=== PATIENT | female | born 1980 | race Hispanic/Latino ===

== ENCOUNTER 2017-10-17 06:39 | Day surgery (SDC) | payer BC ==
[~2017-10-17] VITALS: Ht 160 cm; Wt 68.5 kg
[~2017-10-17 06:39] MED LIST: IRON18 MG PO; NORCO 5-325 TA1 EACH PO; PERCOCET 7.5-31 EACH PO; PRENATAL VITAM1 EACH PO; VITAMIN D50000 UNIT PO
[2017-10-17] MEDS ORDERED: IRON18 MG PO (07:07)
[2017-10-17] MEDS ORDERED: FIBER500 MG PO (07:08)
--- NOTE | 2017-10-29 08:33 | OR ---
[facility] [address] [place], [place] [address] Signed DATE OF OPERATION: 10/17/2017 SURGEON: Aicha Gomez MD PREOPERATIVE DIAGNOSIS: Blighted ovum. POSTOPERATIVE DIAGNOSIS: Blighted ovum. PROCEDURE: Suction D and C. ANESTHESIA: MAC, paracervical block. ESTIMATED BLOOD LOSS: Minimal. DRAINS: None. INDICATIONS AND FINDINGS: The patient is a 36-year-old female, 6, para 4, SAB 1, who was approximately 7-1/2 weeks by her LMP, but has had 2 ultrasounds, which showed empty intrauterine sac. She has had a little bit of spotting. She has been extensively counseled and at this point, she decided that she wished to proceed with D and C. At the time of surgery, exam under anesthesia revealed the uterus, which was approximately 10-week size. The os was closed. There was a large amount of tissue within the uterus. DESCRIPTION OF PROCEDURE: The patient was prepped and draped in the dorsal lithotomy position. An open-sided speculum was placed. The anterior lip of the cervix was visualized and grasped with a single-tooth tenaculum. The endocervical canal was then dilated to a #9 dilator. The # 9 curved suction curette was then introduced and suction done with removal of a large amount of tissue. This was then followed by sharp curettage with removal of more tissue. The suction and sharp curettage were alternated until the cavity felt smooth and regular and contracted. Following this, the tenaculum was removed and there was bleeding from the tenaculum sites, which did not respond to pressure on the patient's left side. This required a [id number]-rq-[id number] suture of 0 chromic. The patient had received a paracervical block at the onset of the procedure with injection of 5 mL of 1% lidocaine plain at 2, 4, 8, and 10 o'clock. Procedure was then terminated. After removal of the speculum and the patient was taken to the recovery room in good condition. Electronically Signed By: AICHA GOMEZ MD 10/29/17 0833 PATIENT NAME: DANITZA LAROSE OPERATIVE REPORT DATE OF : 76 PHYSICIAN: AICHA GOMEZ MD REPORT #: [id number] REPORT IS CONFIDENTIAL AND NOT TO BE RELEASED WITHOUT AUTHORIZATION [address] [address] Signed Aicha Gomez MD PJW/MODL /[id number] Electronically Signed By: AICHA GOMEZ MD 10/29/17 0833 PATIENT NAME: DANITZA LAROSE OPERATIVE REPORT DATE OF : 76 PHYSICIAN: AICHA GOMEZ MD REPORT #: [id number] REPORT IS CONFIDENTIAL AND NOT TO BE RELEASED WITHOUT AUTHORIZATION
== END 2017-10-17 10:45 | disposition home or self-care (01) ==
LOC: DS 06:39
PROVIDERS: Obstetrics & Gynecology
PROC: 10D07Z8 Extraction of Products of Conception, Other, Via Natural or Artificial Opening (ICD-10-PCS; principal; 2017-10-17 08:00)
DX: O02.0 Blighted ovum and nonhydatidiform mole (principal); I10 Essential (primary) hypertension; Z79.899 Other long term (current) drug therapy; Z3A.01 Less than 8 weeks gestation of pregnancy
CPT/HCPCS: 00952; J1100; J1885; J2250; J2405; J2704; J2765; J3010; J7120

== ENCOUNTER 2018-12-04 05:38 | Inpatient (IN) | payer BC ==
[~2018-12-04] VITALS: Ht 160 cm; Wt 80.0 kg
[~2018-12-04 05:38] MED LIST changes: +FIBER500 MG PO
--- NOTE | 2018-12-05 07:52 | PR ---
[facility] [address] [facility] [place], [place] [address] Signed PP Progress Notes Datetime Report Generated by ENDER: 12/05/2018 07:52 SUBJECTIVE: [id number] Pain: Within normal limits Nausea/Vomiting: Denies Vital Signs: [id number] Vital Signs: Reviewed; Within Normal Limits EXAM: [id number] Cardiovascular: Not Done Respiratory: Not Done Abdomen/Uterus: Abnormal Lochia: Normal Vulva/Perineum: Not Done Breasts: Not Done CVA Tenderness: Not Done Extremities: Normal Incision: Not Applicable Progress: Normal Exam Comments: Fundus firm, NT @ U-1. H/H 10.7/34.2, WBC 12.8, 194k IMPRESSION/PLAN/PROCEDURES: [id number] Impression: Normal progression Plan: Continue present management Progress Notes: Doing well overall. Signing Physician: Aicha Gomez MD Copies: ~ *Electronically Signed* 12/05/18 0752 AICHA GOMEZ MD PATIENT NAME: DANITZA LAROSE PROGRESS NOTE DATE OF : 76 PHYSICIAN: AICHA GOMEZ MD RPT #: [id number] REPORT IS CONFIDENTIAL AND NOT TO BE RELEASED WITHOUT AUTHORIZATION
--- NOTE | 2018-12-06 08:14 | PR ---
[facility] [address] [facility] [place], [place] [address] Signed PP Progress Notes Datetime Report Generated by ENDER: 12/06/2018 08:14 SUBJECTIVE: [id number] Pain: Within normal limits Nausea/Vomiting: Denies Vital Signs: [id number] Vital Signs: Reviewed; Within Normal Limits EXAM: [id number] Cardiovascular: Not Done Respiratory: Not Done Abdomen/Uterus: Abnormal Lochia: Normal Vulva/Perineum: Not Done Breasts: Not Done CVA Tenderness: Not Done Extremities: Normal Incision: Not Applicable Progress: Normal Exam Comments: Fundus firm, NT @ U-1. H/H 10.7/34.2, WBC 12.8, 194k IMPRESSION/PLAN/PROCEDURES: [id number] Impression: Normal progression Plan: Discharge Progress Notes: Doing well. She desires D/C. Signing Physician: Aicha Gomez MD Copies: ~ *Electronically Signed* 12/06/18813 AICHA GOMEZ MD PATIENT NAME: DANITZA LAROSE PROGRESS NOTE DATE OF : 76 PHYSICIAN: AICHA GOMEZ MD RPT #: [id number] REPORT IS CONFIDENTIAL AND NOT TO BE RELEASED WITHOUT AUTHORIZATION
== END 2018-12-06 12:35 | disposition home or self-care (01) | DRG 807 ==
LOC: FBC 06:05
PROVIDERS: ADMIT Obstetrics & Gynecology
PROC: 10E0XZZ Delivery of Products of Conception, External Approach (ICD-10-PCS; principal; 2018-12-04)
PROC: 0KQM0ZZ Repair Perineum Muscle, Open Approach (ICD-10-PCS; 2018-12-04)
PROC: 10907ZC Drainage of Amniotic Fluid, Therapeutic from Products of Conception, Via Natural or Artificial Opening (ICD-10-PCS; 2018-12-04)
DX: O99.824 Streptococcus B carrier state complicating childbirth (principal); Z37.0 Single live birth; Z3A.39 39 weeks gestation of pregnancy; O70.1 Second degree perineal laceration during delivery; O69.81X0 Labor and delivery complicated by cord around neck, without compression, not applicable or unspecified; O75.89 Other specified complications of labor and delivery; O99.62 Diseases of the digestive system complicating childbirth; K59.00 Constipation, unspecified; Z79.899 Other long term (current) drug therapy; Z88.5 Allergy status to narcotic agent; Z88.8 Allergy status to other drugs, medicaments and biological substances; Z86.19 Personal history of other infectious and parasitic diseases
CPT/HCPCS: 36415; 85027; J2210; J2540; J2590; J3010; J7060; J7120